=== PATIENT | male | born 1975 | race Caucasian/White ===

== ENCOUNTER 2019-12-01 22:08 | Inpatient (IN) | payer MEDICAID ==
[~2019-12-01] VITALS: Ht 180.3 cm; Wt 130.2 kg
[2019-12-01] VITALS (7 sets, daily range): BP systolic 109–171; BP diastolic 74–90
[2019-12-01] MEDS ORDERED: NORVASC10 MG PO (22:16)
[2019-12-01] MEDS ORDERED: EDARBI40 MG PO (22:16)
[2019-12-01] MEDS ORDERED: GLUCOPHAGE500 MG PO (22:17)
[2019-12-01] MEDS ORDERED: XANAX0.5 MG PO (22:17)
[2019-12-01] MEDS ORDERED: LEXAPRO10 MG PO (22:17)
--- NOTE | 2019-12-01 22:38 | NUR ---
PT STATES NO CHANGE TO PAIN AFTER 1'ST NITRO- B/P DOWN TO 153/86- 2'ND NITRO GIVEN
[2019-12-01 22:42] LABS: BASOPHILS 0.3 % (0-2); HEMATOCRIT 40.3 % (42.0-54.0); HEMOGLOBIN 14.2 g/dL (13.5-17.5); IMMATURE GRANULOCYTES 0.3 % (0-5); LYMPHOCYTES 36.8 % (15-50); MCH 30.4 pg (26.0-34.0); MCHC 35.2 g/dL (31.0-37.0); MCV 86.3 fL (80.0-100.0); MEAN PLATELET VOLUME 9.5 fL (7.4-10.4); MONOCYTES 7.7 % (2-11); NEUTROPHILS 53.9 % (40-80); PLATELET COUNT 262 10x3/uL (130-400); RBC 4.67 10x6/uL (4.20-6.10); RDW 13.2 % (11.5-14.5); WBC 9.1 10x3/uL (4.8-10.8)
--- NOTE | 2019-12-01 22:43 | NUR ---
PT STATES PAIN IS DOWN TO 6/10 AFTER SECOND NITRO. B/P DOWN TO 135/84
--- NOTE | 2019-12-01 22:45 | NUR ---
SPOKE TO DR ERICKSON- 3'D NITRO APPROVED.
[2019-12-01 22:46] LABS: CALC OSMOLALITY 279 mosm/kg (275-300); CARBON DIOXIDE 22.4 mmol/L (21.0-32.0); CHLORIDE - SERUM 106 mmol/L (98-107); CREATININE - SERUM 1.1 mg/dL (0.6-1.3); GLUCOSE 125 mg/dL (74-106); POTASSIUM - SERUM 3.8 mmol/L (3.5-5.1); SODIUM 139 mmol/L (136-145); UREA NITROGEN 16 mg/dL (7-18); eGFR NON AFRICAN AMERICAN 76 mL/min (90-120)
--- NOTE | 2019-12-01 22:46 | NUR ---
3'D NITRO GIVEN. WILL MONITOR. URINE TO LAB.
[2019-12-01 22:51] LABS: APTT 27.5 SECONDS (22.8-39.4); INR 1.04 (0.85-1.17); PROTIME 13.6 SECONDS (11.6-15.0)
[2019-12-01 22:52] LABS: BILIRUBIN NEGATIVE (NEGATIVE); GLUCOSE NEGATIVE (NEGATIVE); KETONE NEGATIVE (NEGATIVE); NITRITE NEGATIVE (NEGATIVE); SPECIFIC GRAVITY 1.005 (1.005-1.020); UROBILINOGEN NORMAL (NORMAL)
--- NOTE | 2019-12-01 22:54 | NUR ---
PT STATES NOT MUCH RELIEF AFTER 3'D NITRO. STATES STILL HAVING ABD PAIN. IN ALL UPPER QUADRANTS.
--- NOTE | 2019-12-01 23:15 | NUR ---
ZOFRAN 4MG IV GIVEN FOR NAUSEA.
[2019-12-01 23:25] LABS: ALBUMIN 3.9 g/dL (3.4-5.0); ALKALINE PHOSPHATASE 86 U/L (30-120); ALT (SGPT) 74 U/L (10-68); AMYLASE - SERUM 44 U/L (25-115); BILIRUBIN - TOTAL 0.27 mg/dL (0.2-1.3); CKMB 1.9 U/L (0.0-3.6); LIPASE 222 U/L (73-393); MAGNESIUM - SERUM 1.8 mg/dL (1.8-2.4); PROTEIN - SERUM 7.8 g/dL (6.4-8.2)
[2019-12-01 23:26] LABS: CREATINE KINASE 852 UL (21-232); TROPONIN-I < 0.017 ng/mL (0.000-0.060)
--- NOTE | 2019-12-01 23:40 | NUR ---
PT VOMITED LARGE AMOUNT OF YELLLOWISH EMESIS. STATES FEELING SOME BETTER AFTER THROWING UP. MS 6 AND ZOFRAN 4MG GIVEN.
[2019-12-02] VITALS (8 sets, daily range): BP systolic 115–152; BP diastolic 66–90; Ht 180.3 cm; Wt 130.2 kg
--- NOTE | 2019-12-02 00:40 | NUR ---
TO CT VIA STRETCHER WITH COFFEE PLANTATION WORKER
--- NOTE | 2019-12-02 01:02 | NUR ---
PATIENT BACK FROM CT.
--- NOTE | 2019-12-02 01:23 | NUR ---
PATIENT AWAKE AND ALERT. DENIES PAIN. FAMILY AT BEDSIDE. AWARE WE ARE WAITING ON CT REPORT
--- NOTE | 2019-12-02 02:20 | NUR ---
ANTIBIOTIC CHANGED TO MEFOXIN- DR. ERICKSON AWARE MAXIPIME IS INFUSING CURRENTLY AND STATES NEXT DOSE AT 1000 CAN BE THE 1'ST DOSE OF MEFOXIN.
--- NOTE | 2019-12-02 03:23 | NUR ---
RECEIVED TO ROOM VIA WHEELCHAIR FROM ER. ALERT.ORIENTED. NO COMPLAINTS VOICED AT PRESENT. IV TO LEFT WRIST INTACT WITHOUT REDNESS OR EDEMA NOTED. ORIENTED TO ROOM. CL IN REACH
--- NOTE | 2019-12-02 05:29 | NUR ---
I have reviewed this patient and I concur with the Shift Assessment completed by the Licensed Practical Nurse today this shift.
--- NOTE | 2019-12-02 07:25 | NUR ---
ALERT AND ORIENTED. LUNGS CLEAR BILATERALLY. HEART SOUNDS S1 AND S2 HEARD IN ALL BETT[place]OURT. BOWEL SOUNDS ACTIVE X 4. SKIN INTACT WITHOUT REDNESS. IV TO LEFT WRIST PATENT WITHOUT REDNESS. DENIES PAIN. DENIES NEEDS. BED LOW. CALL SAAVEDRA AND PERSONAL ITEMS IN REACH. WILL CONTINUE TO MONITOR.
--- NOTE | 2019-12-02 09:04 | NUR ---
PREOP MEDS GIVEN PER ORDER.
[2019-12-02] MEDS ORDERED: HYDROCODON-ACE1 EAC7 PO (11:06)
--- NOTE | 2019-12-02 11:21 | NUR ---
OPA REMOVED. PT BREATHING RRR, NONLABORED.
--- NOTE | 2019-12-02 11:39 | NUR ---
PATIENT RETURNED FROM PROCEDURE. VITALS STABLE. AWAKE. ALERT AND ORIENTED. WILL CONTINUE TO MONITOR.
--- NOTE | 2019-12-02 13:46 | NUR ---
PATIENT TOLERATED LUNCH WITHOUT DIFFICULTY. REQUESTING DC. DC HOT PLATE PRESS OPERATOR NOTIFIED. STATES WAITING MEDICAL BUT WILL TALK TO CARLO BRADEN.
--- NOTE | 2019-12-02 14:20 | NUR ---
DISCHARGE EDUCATION PROVIDED BOTH WRITTEN AND VERBAL. VERBALIZED UNDERSTANDING. DENIES FURTHER QUESTIONS. PRN PAIN MEDICATION GIVEN FOR DISCHARGE. DENIES FURTHER NEEDS. IV REMOVED FROM LEFT WRIST WITH TIP INTACT. PATIENT DISCHARGED HOME WITH WITH ALL BELONGINGS.
--- NOTE | 2019-12-04 15:20 | MORECARE ---
CASE MANAGEMENT DISCHARGE SUMMARY PATIENT: JORDYN MORGAN UNIT: [id number] ADM DATE: 12/02/19 AGE: 44 : 71 SEX: M ROOM/BED: D.2233 AUTHOR: DACIA ASHER PHYSICIAN: REFERRING PHYSICIAN: ALONDRA OMALLEY MD DATE OF SERVICE: 12/04/19 Discharge Plan Patient Name: JORDYN MORGAN [facility] [facility] 1975 Planned Disposition: Home Anticipated Discharge Date: Discharge Date: 12/02/2019 Expected LOS: 0 Initial Reviewer: [email or web address] Initial Review Date: 12/04/2019 Generated: 12/04/19 4:19 pm Patient Name: JORDYN MORGAN Page [id number] at 1520 All edits/amendments must be made on the electronic document DICTATION DATE: 12/04/19 1519 CURTAIN FELLER BLINDSTITCH: BART 12/04/19 1519 RPT#: [id number] DC DATE:12/02/19 STATUS: DIS IN [facility] [address] [place] [address] END OF REPORT
== END 2019-12-02 14:26 | disposition home or self-care (01) | DRG 419 ==
LOC: D.ER 22:08 → D.MS 12-02 01:47
PROVIDERS: Family Medicine; Surgery; ADMIT Internal Medicine Nephrology; ATTEND Internal Medicine Nephrology
PROC: 0FT44ZZ Resection of Gallbladder, Percutaneous Endoscopic Approach (ICD-10-PCS; principal; 2019-12-02 11:00)
DX: K80.01 Calculus of gallbladder with acute cholecystitis with obstruction (principal); I10 Essential (primary) hypertension; E11.9 Type 2 diabetes mellitus without complications; R00.1 Bradycardia, unspecified; F41.9 Anxiety disorder, unspecified

== ENCOUNTER → 2020-07-27 13:33 | Outpatient (CLI) | payer MEDICAID ==
--- NOTE | ~2020-07-27 | ST ---
PATIENT:JORDYN MORGAN MEDICAL RECORD: [id number] SEX: M LOCATION:[facility] ORDER #: ADMISSION DATE: 07/27/20 AGE OF PATIENT: 45 REFERRING PHYSICIAN: INTERPRETING PHYSICIAN: INDIRA MATHEW MD DATE OF SERVICE: 07/27/2020 PROCEDURE: Treadmill stress test. Baseline ECG was normal. Exercised for 10 minutes on Jovanni protocol. Maximum heart rate is 161 beats per minute, greater than 85% max predicted. No ECG changes of ischemia. No symptoms of ischemia. No blood pressure exercise. No arrhythmias noted. Good exercise tolerance for age. TRANSINT:[id number] Voice Confirmation ID: [id number] DOCUMENT ID: [id number] INDIRA MATHEW MD CC: [id number] DICTATION DATE: 07/28/20 1451 DRUM CLEANER: 07/29/20 1135 [facility] CLI 07/27/20 [id number] [place] [address]
--- NOTE | ~2020-07-27 | EC ---
PATIENT:JORDYN MORGAN DATE OF SERVICE: 07/27/20 SEX: M MEDICAL RECORD: [id number] DATE OF : 71 LOCATION:[facility] AGE OF PATIENT: 45 ADMISSION DATE: 07/27/20 REFERRING PHYSICIAN: INTERPRETING PHYSICIAN: INDIRA MATHEW MD ECHOCARDIOGRAM REPORT ECHO CHARGES 4 ECHO COMPLETE Date: 07/27/20 CLINICAL DIAGNOSIS: HEART MURMUR HX OF HTN ECHOCARDIOGRAPHIC MEASUREMENTS (adult normal given) AC root (d.<3.7cm) 3.7 cm LV Septum d (<1.2 cm> 1.6 cm Valve Excursion 2.0 cm LV Septum (systole) 1.9 cm Left Atria (s.<4.0cm> 4.4 cm LVPW d(<1.2cm) 4.7 cm RV (d.<2.3cm) 4.1 cm LVPW (sytole) 2.1 cm LV diastole(<5.6CM) 4.9 cm MV E-F(>70mm/sec) cm LV systole 2.8 cm LVOT Diameter 2.1 cm MV exc.(>10mm) 1.4 cm Est.ejection fraction (50-75%) % DOPPLER: LVIT cm/sec A 59.0 cm/sec E 81.0 cm/sec LA cm/sec RVSP 28 mmHg LVOT 116 cm/sec AOP1/2T m/s Asc. Ao 146 cm/sec RVOT 128 cm/sec RA cm/sec PA 152 cm/sec AV Gradient Peak 8.57 mmHg AV Mean 4.25 mmHg AV Area 2.9 cm MV Gradient Peak 3.51 mmHg MV Mean 1.33 mmHg MV Area cm COMMENTS: Biodiesel Plant Operations Engineer: 2 NAVNEET VALENZUELA Strategic Partner Development Manager: 3 Dr. Almanzar TAPE# PACS Pericardial Effusion N DATE OF SERVICE: Adequate 2D, color flow imaging, spectral Doppler, and M-Mode. LVH is present. LV internal dimension is normal. Wall motion is normal. EF is greater than or equal to 55%. Aortic valve is tricuspid. No evidence of stenosis by Doppler interrogation. Left atrium is mildly dilated at 4.4 cm. Mitral valve shows no prolapse. Trace MR. Right-sided chambers are grossly normal. Trace TR. TRANSINT:[id number] Voice Confirmation ID: [id number] DOCUMENT ID: [id number] ECHOCARDIOGRAM REPORT [id number] JORDYN MORGAN GREGORY A MD CC: [id number] DICTATION DATE: 07/28/20 1502 SYSTEMS SECURITY CONSULTANT: 07/28/20 2318 [facility] CLI 07/27/20 [place] [id number] [place] [id number]
[~2020-07-27 13:33] MED LIST: EDARBI40 MG PO; GLUCOPHAGE500 MG PO; HYDROCODON-ACE1 EAC7 PO; LEXAPRO10 MG PO; NORVASC10 MG PO; XANAX0.5 MG PO
== END | disposition home or self-care (01) ==
LOC: D.HCCECHO 13:33
PROVIDERS: ATTEND Internal Medicine Interventional Cardiology
DX: I20.9 Angina pectoris, unspecified (principal)